=== PATIENT | female | born 1990 | race Hispanic/Latino ===

== ENCOUNTER 2016-10-31 22:25 | Emergency (ER) | payer OTHER ==
[2016-10-31 22:57] VITALS: BP 129/61; PULSE 83; RESP 16; TEMP 98.5; O2SAT 98
--- NOTE | 2016-10-31 23:23 | ED PDOC ---
HPI: Wound Care - HPI Chief Complaint (Provider): Abscess History Per: Patient History Of Present Illness: 26 yo w PMHx only of MRSA skin infections presents to ER w abscess on her Left hip forming for previous 4 days. She had a small scab that was picked off, which then became warm, erythematous, drained pus, and slowly grew within last 4 days. Today, she noticed an erythematous track that was moving toward her inguinal region. She denies any fevers/chills, nausea, vomiting, or diarrhea. She has a h/o of 2 other MRSA skin abscesses that have occurred 1.5 yrs and 1 yr ago, treated successfully w PO Bactrim. 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 Otherwise, she denies any PMHx, home medications, chest pain, SOB, dyspnea, cough, abdominal pain, hematuria, dysuria, or other myalgias. Exam Limitations: no limitations Onset/Duration Of Symptoms: Days (4) Current Symptoms Are (Timing): Still Present Location Of Injury: Left: Hip Quality Of Symptoms: Painful, Draining Severity: Mild Pain Scale Rating Of: 3 <Melvin Ledbetter T - Last Filed: 11/01/16 02:24> <Shirley Rae F - Last Filed: 11/02/16 14:54> - HPI Time Seen by Provider: 10/31/16 23:10 Chief Complaint (Nursing): Abnormal Skin Integrity Past Medical History Vital Signs: Last Vital Signs Temp 98.5 F 10/31/16 22:52 Pulse 83 10/31/16 22:52 Resp 10/31/16 22:52 BP 129/61 10/31/16 22:52 Pulse Ox 98 10/31/16 22:52 - Medical History PMH: No Chronic Diseases - Family History Family History: States: No Known Family Hx <Melvin Ledbetter - Last Filed: 11/01/16 02:24> Vital Signs: Last Vital Signs Temp 98.5 F 10/31/16 22:52 Pulse 83 10/31/16 22:52 Resp 16 10/31/16 22:52 BP 129/61 10/31/16 22:52 Pulse Ox 98 11/01/16 02:24 <Shirley Rae - Last Filed: 11/02/16 14:54> - Home Medications Home Medications: Ambulatory Orders Medication Instructions Recorded Cephalexin [cephalexin] 500 mg PO QID #27 cap 10/31/16 Naproxen [Naprosyn] 500 mg PO BID PRN #15 tablet 10/31/16 Sulfamethoxazole/Trimethoprim 1 tab PO BID #13 tab 10/31/16 [Bactrim DS 800 mg-160 mg] - Allergies Allergies/Adverse Reactions: Allergies Allergy/AdvReac Type Severity Reaction Status Date / Time No Known Allergies Allergy Verified 10/31/16 22:57 Review of Systems ROS Statement: Except As Marked, All Systems Reviewed And Found Negative (see HPI) <Melvin Ledbetter - Last Filed: 11/01/16 02:24> Physical Exam - Reviewed Nursing Documentation Reviewed: Yes Vital Signs Reviewed: Yes - Physical Exam Appears: Positive for: Well, Non-toxic, No Acute Distress Head Exam: Positive for: ATRAUMATIC, NORMOCEPHALIC Skin: Positive for: Normal Color, Warm (L hip: 2-3 x 1cm fluctuant area, warm and TTP, surrounded by erythema w erythematous track towards inguinal region), Dry Eye Exam: Positive for: Normal appearance, EOMI, PERRL ENT: Positive for: Normal ENT Inspection Neck: Positive for: Normal, Painless ROM Cardiovascular/Chest: Positive for: Regular Rate, Rhythm. Negative for: Edema Respiratory: Positive for: Normal Breath Sounds. Negative for: Rhonchi, Wheezing Gastrointestinal/Abdominal: Positive for: Normal Exam, Soft. Negative for: Tenderness Extremity: Negative for: Pedal Edema, Calf Tenderness Neurologic/Psych: Positive for: Alert, fish checker II-XII, Oriented <Melvin Ledbetter T - Last Filed: 11/01/16 02:24> - ECG O2 Sat by Pulse Oximetry: 98 - Progress ED Course And Treament: 26 yo w PMHx only of MRSA skin infections presents to ER w abscess on her Left hip forming for previous 4 days -Keflex 500mg PO Once -Bactrim 1 tab Will discharged with instructions / scripts: -Follow up w PMD within 2 days of discharge -Cephalexin 500mg PO QID #27 caps -Bactrim 1 tab PO BID #13 tabs -Naproxen 500mg PO BID PRN #15 tabs <Melvin Ledbetter T - Last Filed: 11/01/16 02:24> Medical Decision Making Medical Decision Makin yo with skin redness and pain. - nonfluctuant area with surrounding induration - no fever/WBC - IV Abx - d/c home with PO Abx <Shirley Rae F - Last Filed: 11/02/16 14:54> Disposition - Disposition Disposition Time: 00:19 <Melvin Ledbetter - Last Filed: 11/01/16 02:24> <Shirley Rae - Last Filed: 11/02/16 14:54> - Clinical Impression Clinical Impression: Cellulitis and abscess of other specified site - Disposition Condition: STABLE Additional Instructions: FOLLOW-UP WITH PMD WITHIN 2 DAYS FOR REEVALUATION. Prescriptions: Cephalexin [cephalexin] 500 mg PO QID #27 cap Naproxen [Naprosyn] 500 mg PO BID PRN #15 tablet PRN Reason: Pain, Moderate (4-7) Sulfamethoxazole/Trimethoprim [Bactrim DS 800 mg-160 mg] 1 tab PO BID #13 tab Instructions: Cellulitis (ED), Abscess (ED) Forms: [employer] ([place])
[2016-10-31] MEDS ORDERED: Tmp-Smz 800 mg-160 mg DS Tab PO STA (23:37)
[2016-10-31] MEDS ORDERED: Tmp-Smz 800 mg-160 mg DS Tab ONE (23:40)
== END 2016-11-01 00:19 | disposition home or self-care (01) ==
LOC: H.ER 22:25
DX: L02.414 Cutaneous abscess of left upper limb (principal)